=== PATIENT | female | born 1940 | race Caucasian/White ===

== ENCOUNTER → 2016-08-14 | Outpatient (CLI) | payer OTHER ==
--- NOTE | ~2016-08-14 | PFT ---
[id number] [facility] [address] [facility]. [place], [place] [address] [id number] O MR#: [id number] NAME: HOMERO COOK ROOM: SEX: F STUDY DATE/TIME: 08/14/2016 : 1940 AGE: 75 STUDY DESCRIPTION: Attending Physician: Stefan Leon M.D. Referring Physician: Stefan Leon M.D. Primary Care Physician: Stefan Leon M.D. PULMONARY DIAGNOSTIC REPORT EXAM Pulmonary function test FINDINGS Spirometry is suggestive of a mild restrictive defect. There is borderline response to bronchodilators yielding essentially normal spirometry. There is a borderline response to bronchodilators at 9%. Flow-volume loop is suggestive of an obstructive defect. Lung volumes reveal evidence of airtrapping. ERV is reduced which can be seen in obesity. Diffusion capacity is mildly reduced. Isolated reduced diffusion capacity can be seen in early pulmonary vascular disease, early interstitial lung disease, emphysema, anemia, etc., and clinical correlation is needed. Dictated by... Trevor Jeter M.D. WOL/cf TD: 08/14/2016 23:22 JOB #: [id number] PULMONARY DIAGNOSTIC REPORT Page 1 of 1
== END | disposition home or self-care (01) ==
LOC: CRC 10:29
DX: R06.09 Other forms of dyspnea (principal)
CPT/HCPCS: 94060; 94726; 94729